=== PATIENT | female | born 1980 | race American Indian/Alaskan Native ===

== ENCOUNTER 2018-09-09 11:27 | Day surgery (SDC) | payer OTHER ==
[2018-09-02 12:55] VITALS: BMI 39.6
[2018-09-09] MEDS ORDERED: Propofol 10 mg/ml Inj (20 ML) ONE (14:57)
[2018-09-09] MEDS ORDERED: Midazolam 2 MG/2 ML VIAL ONE (14:57)
[2018-09-09] MEDS ORDERED: Clindamycin 600mg/50ml NS 600 MG/50 ML BAG IVPB ONE (14:57)
[2018-09-09] MEDS ORDERED: Lidocaine Hydrochloride 5 ML INJ ONE (15:00)
[2018-09-09] MEDS: Lidocaine/Epinephrine 1% 1:100000 10 ML IJ ONE ×2 (15:04→15:13)
[2018-09-09] MEDS: Bupivacaine HCl 0.25% PF (10 ml) Inj ONE ×2 (15:04→15:13)
[2018-09-09] MEDS ORDERED: Bupivacaine HCl 0.25% PF (10 ml) Inj ONE (15:31)
[2018-09-09] MEDS ORDERED: Lidocaine/Epinephrine 1% 1:100000 10 ML IJ ONE (15:31)
[2018-09-09] MEDS ORDERED: HYDROmorphone 0.5 mg/0.5 ml ISec IVP PRN (16:00)
--- NOTE | 2018-09-09 16:00 | PCM.SURG1 ---
Surgeon's Initial Post Op Note - Surgeon's Notes Surgeon: Dr. Garcia Window Display Designer: Deedee PGY2 Type of Anesthesia: IV Sedation, Local Anesthesia Administered By: Dr. Michelle Pre-Operative Diagnosis: Right upper back sebaceous cyst Operative Findings: see operative report Post-Operative Diagnosis: same Operation Performed: Excision of Right upper back sebaceous cyst Specimen/Specimens Removed: Right Upper Back Sebaceous Cyst Estimated Blood Loss: EBL {In ML}: 15 Blood Products Given: N/A Drains Used: No Drains Post-Op Condition: Good Date of Surgery/Procedure: 09/09/18 Time of Surgery/Procedure: 16:01
[2018-09-09 17:26] VITALS: RESP 18
[2018-09-09 17:27] VITALS: BP 129/78; PULSE 93; TEMP 97.8; O2SAT 97
--- NOTE | 2018-09-13 03:43 | OP ---
PROCEDURE DATE: 09/09/2018 PREOPERATIVE DIAGNOSES: 1. Large sebaceous cyst of left upper back, approximately 5 x 4 cm size. 2. Morbid obesity. POSTOPERATIVE DIAGNOSES: 1. Large sebaceous cyst of left upper back, approximately 5 x 4 cm size. 2. Morbid obesity. PROCEDURES DONE: 1. Excision of the large sebaceous cyst of the left upper back, 5 x 4 cm size. 2. Excision of the skin and redundant skin of the left upper back surrounding the infected sebaceous cyst, approximately 5 x 6 cm size. 3. Complex layered closure of the wound of the left upper back, 5 x 4 x 4 cm size. SURGEON: Jalen Garcia MD ANESTHESIA: Local anesthesia plus sedation. ESTIMATED BLOOD LOSS: Around 10 mL. DRAINS: None. PATHOLOGY: The sebaceous cyst with excised redundant skin and subcutaneous tissue was sent to the Pathology. COMPLICATIONS: None. INTRAOPERATIVE FINDINGS: The patient had approximately 5 x 4 cm large sebaceous cyst of the left upper back with previously scarred and infected skin. DESCRIPTION OF PROCEDURE: On intraoperative steps, this 38-year-old female was diagnosed with a large sebaceous cyst of the left upper back, and the patient was treated with oral antibiotics. The patient was consented for the excision of the sebaceous cyst. The patient was brought to the OR and placed in the left lateral position. The upper back was prepped and draped in the usual sterile fashion. Local anesthesia was injected. An elliptical incision was made approximately 5 x 4 cm size, and upper and lower flap was created. The elliptical incision also included the necrosed skin and subcutaneous tissue, and upper and lower flap was created. The medial and lateral dissection was done, and the dissection was carried down deep up to the underlying fascia as well as the muscle. The sebaceous cyst was completely excised intact with surrounding subcutaneous tissue as well as the skin, and it was sent off the table for the pathology. Proper hemostasis was achieved. The wound was irrigated. Now, the wound was closed in a multiple layer. The deep part of the flap was sutured to the underlying fascia and muscle, now the deep subcu with a 2-0 Vicryl, superficial subcu with a 2-0 Vicryl, another layer of superficial subcu with a 3-0 Vicryl and the skin with a 4-0 Monocryl. Dry sterile dressing was applied. The patient tolerated the procedure well. Count of instruments and gauze was correct. There was no apparent complication. The patient was given some sedation in the OR, sent to the postanesthesia care unit in stable condition. Jalen Garcia MD
== END 2018-09-09 17:29 | disposition home or self-care (01) ==
LOC: C.SDS 11:27
PROVIDERS: ATTEND Surgery Surgical Critical Care
DX: L72.3 Sebaceous cyst (principal); E66.01 Morbid (severe) obesity due to excess calories
CPT/HCPCS: 11406; 13101; 88305; J2250; J2704; J3010